=== PATIENT | female | born 1995 | race Caucasian/White ===

== ENCOUNTER → 2019-09-06 | Outpatient (CLI) | payer BC, MEDICAID ==
--- NOTE | 2019-09-06 10:49 | Diagnostic Imaging Report ---
INDICATION: survey. TECHNIQUE: Multiple real-time grayscale images were obtained over the gravid uterus. COMPARISON: None FINDINGS: There is a single live fetus in a breech presentation. heart rate was recorded at 144 bpm. The placenta is anterior. Amniotic fluid volume is normal. kidneys, bladder and stomach are unremarkable. The brain is unremarkable. There is a four-chamber heart. There is a three-vessel cord with normal insertion. spine is unremarkable. Biometrical measurements are as follows: Biparietal 5.2 cm, age 21 weeks 6 days. Head circumference 19.5 cm, age 21 weeks 5 days. Abdominal circumference 16.3 cm, age 21 weeks 3 days. Femur length 3.4 cm, age 20 weeks 6 days. Sonographic estimate age: 21 weeks 4 days. Sonographic estimated date of delivery: 01/13/20. Estimated Weight: 404 gm (+/- 59 gm). LMP percentile: 25%. heart rate: 144 beats per minute. number: 1 of 1. IMPRESSION: Single live IUP 21 weeks 4 days gestational age. Estimated date of confinement sonographically is 01/13/2020. Dictated by: Dictated on workstation # [id number]
== END ==
LOC: RAD 10:02
PROVIDERS: ATTEND Obstetrics & Gynecology
DX: Z36.89 Encounter for other specified antenatal screening (principal); Z3A.21 21 weeks gestation of pregnancy
CPT/HCPCS: 76805

== ENCOUNTER 2019-11-07 16:49 | Outpatient (CLI) | payer BC, MEDICAID ==
[~2019-11-07] VITALS: Ht 162.6 cm; Wt 93.7 kg
--- NOTE | 2019-11-07 16:45 | NUR ---
CHIN MATTSON presented to unit via AMBULATION from ED, accompanied by S/O, with c/o LEAKING FLUID. CHIN MATTSON weighed, gowned, voided, and to bed. EFHM and TOCO applied, VS taken. CHIN MATTSON oriented to bed controls, call light, TV, heat, and A/C controls.
--- NOTE | 2019-11-07 16:50 | NUR ---
PT REPORTS LEAKING FLUID ONCE LAST WEEK AND AGAIN TODAY, DENIES RECENT INTERCOURSE, BLEEDING, CONTRACTIONS OR PAIN. INITIAL ASSESSMENT COMPLETED, VSS, NITAZINE NEG.
--- NOTE | 2019-11-07 17:20 | NUR ---
DR CHIN NOTIFIED.
[2019-11-07 17:24] LABS: CLARITY,URINE CLOUDY; COLOR,URINE YELLOW; GLUCOSE, URINE (UA) TRACE (NEGATIVE); KETONES,URINE NEGATIVE (NEGATIVE); LEUKOCYTE ESTERASE ,URINE TRACE (NEGATIVE); NITRITE,URINE NEGATIVE (NEGATIVE); PROTEIN,URINE 1+ (NEGATIVE)
[2019-11-07 17:27] VITALS: BP 121/78
[2019-11-07 17:33] LABS: BILIRUBIN,URINE 1+ (NEGATIVE); RBC,URINE 0-2 /HPF; WBC,URINE 0-2 /HPF
[2019-11-07 17:34] LABS: BACTERIA,URINE FEW /HPF
--- NOTE | 2019-11-07 18:00 | NUR ---
DR CHIN CALLED UPDATE GIVEN NEW ORDER RECEIVED.
--- NOTE | 2019-11-07 18:10 | NUR ---
DISCHARGE INSTRUCTIONS EXPLAINED TO PT, PT VERBALIZES UNDERSTANDING, SIGNED, NO QUESTIONS NOTED, PT DENIES PAIN OR CONCERNS.
--- NOTE | 2019-11-07 18:14 | NUR ---
PT AMBULATED OFF UNIT TO PRIVATE CAR WITH SO AT SIDE, NO DISTRESS NOTED, PT TO FOLLOW UP WITH DR SCHEDULED IN CLINIC.
--- NOTE | 2019-11-08 08:04 | Physician Query-Final Dx ---
LC MONCADA 11/08/19 0804: Clinic Account Progress/Dx Physician Query: Please give diagnosis Please include # weeks gestation Date of Service Nov 07, 2019 at 16:49 ENRRIQUE CHIN DO 11/08/19 0958: Clinic Account Progress/Dx DIAGNOSIS: Diagnosis 30 week IUP Vaginal discharge LC MONCADA Nov 08, 2019 08:04 POSENRRIQUE CHIN DO Nov 08, 2019 09:58 POS
== END 2019-11-07 18:14 | disposition home or self-care (01) ==
LOC: LDRP 16:49 → WSo 16:49
PROVIDERS: ATTEND Obstetrics & Gynecology
DX: O23.593 Infection of other part of genital tract in pregnancy, third trimester (principal); N89.8 Other specified noninflammatory disorders of vagina; Z3A.30 30 weeks gestation of pregnancy
CPT/HCPCS: 81000; 87088; 99213

== ENCOUNTER 2019-12-02 16:53 | Outpatient (CLI) | payer BC, MEDICAID ==
[~2019-12-02] VITALS: Ht 160 cm; Wt 98.2 kg
--- NOTE | 2019-12-02 16:48 | NUR ---
CHIN MATTSON presented to unit via from ED , with c/o PELVIC PRESSURE. CHIN MATTSON weighed, gowned, voided, and to bed. EFHM and TOCO applied, VS taken. CHIN MATTSON oriented to bed controls, call light, TV, heat, and A/C controls.
[2019-12-02 18:04] VITALS: BP 123/79
--- NOTE | 2019-12-02 18:05 | NUR ---
DR JOYCE CALLED, UPDATE GIVEN, DR NOTIFIED OF DECELERATION NOTED ON FHR TRACING, NEW ORDERS TO CONTINUE TO MONITOR IF REACTIVE FHR TRACING NOTED WITHOUT FURTHER DECELERATIONS THEN D/C HOME FOR FOLLOW UP WITH DR CABRERA ON MONDAY.
[2019-12-02 18:15] VITALS: BP 118/66
[2019-12-02] MEDS ORDERED: TERBUTALINE INJ 1 MG/ML (BRETHINE) AMP SC NR (18:45)
--- NOTE | 2019-12-02 18:45 | NUR ---
DR JOYCE CALLED NEW ORDERS RECEIVED.
--- NOTE | 2019-12-02 19:46 | NUR ---
DR. JOYCE CALLED AND UPDATED ON PT'S STATUS. ORDERS RECEIVED FOR DISCHARGE HOME.
--- NOTE | 2019-12-02 19:54 | NUR ---
DISCHARGE PAPERS PROVIDED AND REVIEWED WITH PT, PT VERBALIZES UNDERSTANDING AND DENIES ANY QUESTIONS AT THIS TIME. PAPER SIGNED.
--- NOTE | 2019-12-02 19:56 | NUR ---
PT DISCHARGED FROM [facility] TO [facility] VIA AMBULATORY IN STABLE CONDITION ACC BY S/O AND FAMILY.
--- NOTE | 2019-12-03 08:21 | Physician Query-Final Dx ---
Clinic Account Progress/Dx Physician Query: Please give diagnosis Please give # weeks gestation Date of Service Dec 02, 2019 at 16:53 LC MONCADA Dec 03, 2019 08:21
== END 2019-12-02 19:56 | disposition home or self-care (01) ==
LOC: WSo 16:53 → LDRP 16:55 → WSo 19:56
PROVIDERS: ATTEND Obstetrics & Gynecology
DX: O26.893 Other specified pregnancy related conditions, third trimester (principal); R10.2 Pelvic and perineal pain; Z3A.34 34 weeks gestation of pregnancy

== ENCOUNTER 2019-12-13 09:05 | Inpatient (IN) | payer BC, MEDICAID ==
[~2019-12-13] VITALS: Ht 160 cm; Wt 99.0 kg
[2019-12-13] VITALS (30 sets, daily range): BP systolic 107–132; BP diastolic 62–91
--- NOTE | 2019-12-13 09:00 | NUR ---
CHIN MATTSON presented to unit via ambulation with c/o back pain since yesterday & contractions. Pt. weighed, gowned, voided, and to bed. EFHM and TOCO applied, VS taken. Pt. oriented to bed controls, call light, TV, heat, and A/C controls.
--- NOTE | 2019-12-13 09:10 | NUR ---
pt reports c/o back pain and contractions since yesterday. rates pain @ 3 on 1-10 scale. denies taking pain medication for relief. describes as "ache & sharp" @ times. hx of PTD @ 36 weeks. denies vaginal bleeding or leaking fluid. +FM.
--- NOTE | 2019-12-13 09:25 | NUR ---
SVE 3cm, thick, anterior, soft. pt reports seeing Dr. Friedman in office on Monday-3cm.
[2019-12-13 09:27] LABS: BILIRUBIN,URINE NEGATIVE (NEGATIVE); CLARITY,URINE CLEAR; COLOR,URINE YELLOW; GLUCOSE, URINE (UA) NEGATIVE (NEGATIVE); KETONES,URINE NEGATIVE (NEGATIVE); LEUKOCYTE ESTERASE ,URINE TRACE (NEGATIVE); NITRITE,URINE NEGATIVE (NEGATIVE); PH,URINE 6.5 (5-9); PROTEIN,URINE NEGATIVE (NEGATIVE)
[2019-12-13 09:42] LABS: BACTERIA,URINE TRACE /HPF
--- NOTE | 2019-12-13 09:54 | NUR ---
was called. message left with office staff.
--- NOTE | 2019-12-13 10:03 | NUR ---
returned phone call. new orders received. pt status updated r/t monitor tracing, SVE and UA.
[2019-12-13] MEDS ORDERED: D5 LR IV SOLUTION 1,000 ML IV ONE (10:05)
--- NOTE | 2019-12-13 10:14 | NUR ---
#20g IV to Rt.hand x1 attempt by this RN. site patent, secured with opsite. D5LR @ 500cc/hr infusing via IV pump.
[2019-12-13] MEDS ORDERED: D5 LR IV SOLUTION 1,000 ML IV SCH ×3 (10:15→20:12)
[2019-12-13] MEDS ORDERED: ACETAMINOPHEN 500 MG TAB (TYLENOL) PO ONE (10:30)
[2019-12-13] MEDS ORDERED: HYDROmorphone 2 MG/ML VIAL (DILAUDID) IV ONE (11:45)
--- NOTE | 2019-12-13 12:19 | NUR ---
was called with SVE update. new orders received for IV antibiotics.
--- NOTE | 2019-12-13 13:17 | NUR ---
was called r/t PCN allergy. will recheck cervix- contact to see if available for care of pt.
[2019-12-13] MEDS: D5 LR IV SOLUTION 1,000 ML IV SCH ×2 (13:18→21:47)
--- NOTE | 2019-12-13 13:32 | NUR ---
was called with SVE update. will recheck in 1 hour-call MD with update.
--- NOTE | 2019-12-13 14:48 | NUR ---
was called with SVE update. new orders received.
--- NOTE | 2019-12-13 17:36 | NUR ---
was called with update on monitor tracing. new orders received.
[2019-12-13] MEDS ORDERED: CLINDAMYCIN 900 MG/50 ML IVPB 50 ML IV ONE (17:44)
[2019-12-13] MEDS: CLINDAMYCIN 900 MG/50 ML IVPB 50 ML IV SCH (17:51)
[2019-12-13 18:40] LABS: BASOPHILS % (AUTO) 0 % (0-10); EOSINOPHILS # (AUTO) 0.7 10^3/uL (0.0-0.3); EOSINOPHILS % (AUTO) 5 % (0-10); HEMATOCRIT 32 % (35-52); HEMOGLOBIN 10.8 G/DL (11.5-16.0); LYMPHOCYTES # (AUTO) 3.1 X 10^3 (1.0-4.0); LYMPHOCYTES % (AUTO) 24 % (12-44); MEAN CORPUSCULAR HEMOGLOBIN 27 PG (25-34); MEAN CORPUSCULAR HGB CONC 34 G/DL (32-36); MEAN CORPUSCULAR VOLUME 78 FL (80-99); MEAN PLATELET VOLUME 9.8 FL (7.4-10.4); MONOCYTES # (AUTO) 0.7 X 10^3 (0.0-1.0); MONOCYTES % (AUTO) 6 % (0-12); NEUTROPHILS # (AUTO) 8.3 X 10^3 (1.8-7.8); NEUTROPHILS % (AUTO) 65 % (42-75); PLATELET COUNT 309 10^3/uL (130-400); RED CELL DISTRIBUTION WIDTH 12.6 % (10.0-14.5); WHITE BLOOD COUNT 12.8 10^3/uL (4.3-11.0)
[2019-12-13] MEDS ORDERED: ACETAMINOPHEN 500 MG TAB (TYLENOL) ONE (19:05)
[2019-12-13] MEDS ORDERED: SUFENTA 0.6MCG/ML BUPIVA 0.125 100 ML ONE (19:09)
[2019-12-13] MEDS ORDERED: LACTATED RINGERS 1,000 ML IV ONE ×2 (19:09→19:22)
[2019-12-13] MEDS ORDERED: ACETAMINOPHEN 500 MG TAB (TYLENOL) PO PRN (19:15)
[2019-12-13] MEDS ORDERED: fentaNYL INJECTION 100 MCG/2 ML AMP ONE (19:16)
[2019-12-13] MEDS ORDERED: NALOXONE 0.4 MG/ML 1 ML (NARCAN) VIAL IV PRN ×2 (19:30)
[2019-12-13] MEDS ORDERED: diphenhydrAMINE 50 MG/ML INJ (BENADRYL) IV PRN (19:30)
[2019-12-13] MEDS ORDERED: ONDANSETRON 4 MG/2 ML (SDV) Z0FRAN IV PRN (19:30)
[2019-12-13] MEDS ORDERED: METOCLOPRAMIDE INJ 10 MG/2 ML (REGLAN) IV PRN (19:30)
[2019-12-13] MEDS ORDERED: EPIDURAL (SUFENTA 0.6MCG/ML BUPIVA 0.125%) 100 ML BAG EPI PRN (19:30)
--- NOTE | 2019-12-13 19:30 | NUR ---
report given to KAE Martinez.
[2019-12-13] MEDS: OXYTOCIN/NORMAL SALINE 500 ML IV SCH (21:44)
[2019-12-13] MEDS ORDERED: CATHETER FLUSH 10 ML SYR IV SCH (22:00)
[2019-12-14] VITALS (76 sets, daily range): BP systolic 84–124; BP diastolic 51–73
[2019-12-14] MEDS: CLINDAMYCIN 900 MG/50 ML IVPB 50 ML IV SCH ×2 (02:28→10:06)
[2019-12-14] MEDS: D5 LR IV SOLUTION 1,000 ML IV SCH ×2 (04:58→09:31)
--- NOTE | 2019-12-14 06:14 | NUR ---
0550: Nurse spoke with Dr. Friedman. informed of latest SVE and FHT's. Informed that pitocin has been left off through the night since pt has been making change on her own and jose.
[2019-12-14] MEDS ORDERED: LIDOCAINE/EPI 2% 1:200,00 (XYLOCAINE) 10 ML VIAL ONE (07:47)
[2019-12-14] MEDS ORDERED: MINERAL OIL CONCENTRATE 99.9% 15 ML UDC ONE (07:47)
--- NOTE | 2019-12-14 08:10 | NUR ---
Dr Friedman called to inquire about pt status. Will do vag exam and text results. 7-8 cms, -2, no pressure on cervix. Pt comfortable. [id number] Dr Friedman text to inquire about status. Informed her some continued variables, 1 late deceleration but with good variability. Contractions 5-6 minutes apart. Will continue to leave pitocin off.
--- NOTE | 2019-12-14 09:42 | NUR ---
[address] Friedman. No cervical change. 0952 Dr Friedman ordered Pitocin to start at 2 mu/min with maximum of 6. [address] Friedman regarding prolonged deceleration 3 contractions that were 1.5-2 minutes apart. Most contractions are 5 minutes apart. Fetus responded without intervention.
[2019-12-14] MEDS: OXYTOCIN/NORMAL SALINE 500 ML IV SCH ×2 (09:56→15:43)
[2019-12-14] MEDS ORDERED: OXYTOCIN/NORMAL SALINE 500 ML IV SCH ×2 (10:00→15:09)
[2019-12-14] MEDS ORDERED: LACTATED RINGERS 0 ML IV ONE (11:10)
--- NOTE | 2019-12-14 11:10 | NUR ---
LR 1000m bolus initiated per orders - to infuse prior to Propranolol.
[2019-12-14] MEDS ORDERED: LACTATED RINGERS 1,000 ML IV SCH (11:15)
[2019-12-14] MEDS ORDERED: PROPRANOLOL 1 MG/ML (INDERAL) INJ IV NR (11:15)
--- NOTE | 2019-12-14 13:34 | NUR ---
Text message to Dr Friedman. 9cm's, -1. Contractions more regular at 3 minute apart. Occasional mild variables. Turned to lt side using peanut ball. Mild pelvic pressure felt by pt. Addendum: 12/14/19 at 1407 by WALKER LYNN RN Correction -turned to rt side after exam. Had been left side lying with peanut ball prior to exam.
--- NOTE | 2019-12-14 14:40 | NUR ---
Dr Friedman presented to L&D. Pt 10cms
--- NOTE | 2019-12-14 15:12 | History & Physical-OB ---
OB - Chief Complaint & HPI Date/Time Date of Admission: Date of Admission: Dec 13, 2019 at 17:42 Chief Complaint/History Hx : 2 Hx Para: 1 Expected Date of Delivery: Jan 12, 2020 Allergies and Home Medications Allergies Coded Allergies: Penicillins (Verified Allergy, Unknown, Rash, 12/02/19) Home Medications No Active Prescriptions or Reported Meds Patient Home Medication List Home Medication List Reviewed: Yes OB - History Hx of Present Care: Yes Obstetrical History Hx : 2 Hx Para: 1 Social History/Family History Recent Infectious Disease Expo: No Alcohol Use: Denies Use Recreational Drug Use: No 2nd Hand Smoke Exposure: No OB - Admission Exam Physical Exam Vitals: Vital Signs 12/13/19 12/14/19 12/14/19 12/14/19 21:55 12:30 13:30 14:00 Temp 36.7 Pulse 81 Resp 16 B/P (MAP) 100/54 (69) Pulse Ox 100 O2 Delivery Room Air Labs Laboratory Tests Test 12/13/19 18:20 Range/Units White Blood Count 12.8 H 4.3-11.0 10^3/uL Red Blood Count 4.06 L 4.35-5.85 10^6/uL Hemoglobin 10.8 L 11.5-16.0 G/DL Hematocrit 32 L 35-52 % Mean Corpuscular Volume 78 L 80-99 FL Mean Corpuscular Hemoglobin 27 25-34 PG Mean Corpuscular Hemoglobin Concent 34 32-36 G/DL Red Cell Distribution Width 12.6 10.0-14.5 % Platelet Count 309 130-400 10^3/uL Mean Platelet Volume 9.8 7.4-10.4 FL Neutrophils (%) (Auto) 65 42-75 % Lymphocytes (%) (Auto) 24 12-44 % Monocytes (%) (Auto) 6 0-12 % Eosinophils (%) (Auto) 5 0-10 % Basophils (%) (Auto) 0 0-10 % Neutrophils # (Auto) 8.3 H 1.8-7.8 X 10^3 Lymphocytes # (Auto) 3.1 1.0-4.0 X 10^3 Monocytes # (Auto) 0.7 0.0-1.0 X 10^3 Eosinophils # (Auto) 0.7 H 0.0-0.3 10^3/uL Basophils # (Auto) 0.0 0.0-0.1 10^3/uL EMMETT CABRERA DO Dec 14, 2019 15:12
--- NOTE | 2019-12-14 15:14 | OB Labor & Delivery Record ---
Vag Delivery Note Vag Delivery Note Date of Delivery: 12/14/19 Preoperative Diagnosis: Yazmin Tejada is a (24 /Para 2 / 1, Gestational Age 35 6/7 weeks, labor, unknown gbs Postoperative Diagnosis: Same Surgeon: EMMETT CABRERA Anesthesia: epidural Delivery Type: vaginal Findings: Viable male , apgars pending, weight pending Lacerations: none Intact placenta with 3 vessel cord. Nuchal cord x 2 with hand in between the loops at the right side of the neck/chin, no body cord or shoulder dystocia Estimated Blood Loss: 150 ml Complications: None Condition: Stable Description of Procedure: The patient is a 24 year old female who presented for labor. She was admitted and informed consent was obtained. Her initial management was by Dr. Collazo. He did not write any notes, so her labor management was garnered by history from the RN and the nurse. Her labor course was remarkable for antibiotics for GBS prophylaxis. He allowed epidural placement and then AROM with reportedly clear fluid. She did have augmentation with oxytocin due to lack of cervical Change. However, she had variable and late decelerations, so the oxytocin was discontinued. She continued to contract very irregularly and was not making progress. However, she was given propranolol for dysfunctional labor and a peanut ball was used. And then the was 9 cm dilated. She was repo sitioned and was able to be put on 2 mu of oxytocin and then she progressed to complete dilatation and began to push. She was then set up for delivery. The 's head was delivered atraumatically in the VICKI position. The shoulders and remainder of the 's body were then delivered without difficulty. There was a double nuchal cord that was delivered through with a right hand between the two loops of the cord. Upon delivery, the head was held below the level of the perineum and the mouth and nares were bulb suctioned. The cord was doubly clamped and cut and the infant was handed off to the pediatric staff. An intact placenta with 3-vessel cord delivered via Jay and there was found to be minimal bleeding.~ Vigorous fundal massage was performed and the fundus was found to be firm. IV oxytocin was given. Examination of the vagina and perineum revealed no laceration repaired in the usual fashion with 3-0 vicryl suture. Following the delivery, sponge, instrument and needle counts were correct. Mom and baby were both in stable condition in the labor suite. Vitals - Labs Vital Signs - I&O Vital Signs Date Time Temp Pulse Resp B/P (MAP) Pulse Ox O2 Delivery O2 Flow Rate FiO2 12/14/19 14:00 81 100/54 (69) Room Air 12/14/19 13:45 82 96/55 (69) Room Air 12/14/19 13:30 36.7 82 104/58 (73) Room Air 12/14/19 13:15 72 120/58 (78) Room Air 12/14/19 13:00 74 108/56 (73) Room Air 12/14/19 12:45 79 111/62 (78) Room Air 12/14/19 12:30 81 16 107/58 (74) Room Air 12/14/19 12:15 78 16 112/62 (79) Room Air 12/14/19 12:00 81 16 109/60 (76) Room Air 12/14/19 11:45 79 113/61 (78) Room Air 12/14/19 11:30 36.9 Room Air 12/14/19 11:15 75 109/63 (78) Room Air 12/14/19 11:00 80 102/59 (73) Room Air 12/14/19 10:45 80 102/59 (73) Room Air 12/14/19 10:30 76 98/57 (71) Room Air 12/14/19 10:15 80 16 99/62 (74) Room Air 12/14/19 10:00 36.8 80 16 99/62 (74) Room Air 12/14/19 09:45 85 16 99/64 (76) Room Air 12/14/19 09:30 75 16 97/61 (73) Room Air 12/14/19 09:15 85 16 94/61 (72) Room Air 12/14/19 09:00 77 16 104/61 (75) Room Air 12/14/19 08:45 77 16 104/61 (75) Room Air 12/14/19 08:30 73 16 111/64 (80) Room Air 12/14/19 08:15 78 16 106/61 (76) Room Air 12/14/19 08:00 74 16 109/67 (81) Room Air 12/14/19 07:45 74 16 106/71 (83) Room Air 12/14/19 07:30 80 16 105/70 (82) Room Air 12/14/19 07:15 36.6 79 16 105/65 (78) Room Air 12/14/19 06:38 36.3 82 16 115/65 (82) Room Air 12/14/19 06:24 90 16 113/66 (82) Room Air 12/14/19 06:10 84 16 115/66 (82) Room Air 12/14/19 05:55 92 16 117/69 (85) Room Air 12/14/19 05:40 93 16 115/62 (79) Room Air 12/14/19 05:30 81 16 107/64 (78) Room Air 12/14/19 05:25 96 16 110/63 (79) Room Air 12/14/19 05:17 36.7 89 16 110/66 (81) Room Air 12/14/19 05:10 98 16 86/51 (63) Room Air 12/14/19 04:56 86 16 93/57 (69) Room Air 12/14/19 04:55 89 16 84/53 (63) Room Air 12/14/19 04:40 88 16 92/51 (65) Room Air 12/14/19 04:25 84 16 89/55 (66) Room Air 12/14/19 04:10 88 16 95/53 (67) Room Air 12/14/19 03:55 93 16 91/51 (64) Room Air 12/14/19 03:40 86 16 103/59 (74) Room Air 12/14/19 03:25 96 16 91/51 (64) Room Air 12/14/19 03:10 82 16 104/59 (74) Room Air 12/14/19 02:55 82 16 113/67 (82) Room Air 12/14/19 02:40 90 16 107/62 (77) Room Air 12/14/19 02:25 82 16 109/59 (76) Room Air 12/14/19 02:10 89 16 113/58 (76) Room Air 12/14/19 01:55 36.9 92 16 111/68 (82) Room Air 12/14/19 01:40 83 16 112/68 (83) Room Air 12/14/19 01:28 84 16 108/64 (79) Room Air 12/14/19 01:25 82 16 86/52 (63) Room Air 12/14/19 01:10 84 16 94/51 (65) Room Air 12/14/19 00:55 90 16 95/51 (66) Room Air 12/14/19 00:40 84 16 95/53 (67) Room Air 12/14/19 00:25 76 16 103/58 (73) Room Air 12/14/19 00:10 83 16 104/62 (76) Room Air 12/13/19 23:55 88 16 118/71 (87) Room Air 12/13/19 23:40 73 16 116/69 (85) Room Air 12/13/19 23:25 84 16 116/66 (83) Room Air 12/13/19 23:10 80 16 124/77 (93) Room Air 12/13/19 22:55 36.7 87 16 125/77 (93) Room Air 12/13/19 22:40 96 16 125/75 (92) Room Air 12/13/19 22:25 87 16 115/69 (84) Room Air 12/13/19 22:05 86 18 125/80 (95) Room Air 12/13/19 21:55 86 18 120/75 (90) 100 Room Air 12/13/19 21:40 80 18 126/78 (94) 100 Room Air 12/13/19 21:25 78 18 129/80 (96) 99 Room Air 12/13/19 21:10 82 18 132/72 (92) 99 Room Air 12/13/19 20:53 84 18 120/75 (90) 100 Room Air 12/13/19 20:38 83 18 115/74 (88) 99 Room Air 12/13/19 20:33 95 18 127/77 (94) 100 Room Air 12/13/19 20:28 85 18 126/72 (90) 99 Room Air 12/13/19 20:22 89 18 123/78 (93) 98 Room Air 12/13/19 20:18 95 18 123/76 (92) 99 Room Air 12/13/19 20:12 95 18 127/81 (96) 100 Room Air 12/13/19 19:53 100 18 130/78 (95) 100 Room Air 12/13/19 19:48 94 18 123/76 (92) 100 Room Air 12/13/19 19:42 95 18 125/78 (94) 100 Room Air 12/13/19 19:40 97 18 130/81 (97) 100 Room Air 12/13/19 19:38 95 18 130/82 (98) 99 Room Air 12/13/19 19:34 96 18 124/81 (95) 100 Room Air 12/13/19 19:30 91 18 128/91 (103) 100 Room Air 12/13/19 17:30 36.8 91 18 110/64 (79) 97 Room Air I & O 12/14/19 07:00 Intake Total 3050 ml Balance 3050 ml Labs Laboratory Tests 12/13/19 18:20: White Blood Count 12.8H, Red Blood Count 4.06L, Hemoglobin 10.8L, Hematocrit 32L , Mean Corpuscular Volume 78L, Mean Corpuscular Hemoglobin 27, Mean Corpuscular Hemoglobin Concent 34, Red Cell Distribution Width 12.6, Platelet Count 309, Mean Platelet Volume 9.8, Neutrophils (%) (Auto) 65, Lymphocytes (%) (Auto) 24, Monocytes (%) (Auto) 6, Eosinophils (%) (Auto) 5, Basophils (%) (Auto) 0, Neutrophils # (Auto) 8.3H, Lymphocytes # (Auto) 3.1, Monocytes # (Auto) 0.7, Eosinophils # (Auto) 0.7H, Basophils # (Auto) 0.0 Microbiology 12/13/19 Urine Culture - Final, Complete 3 or more isolates EMMETT CABRERA DO Dec 14, 2019 15:14
[2019-12-14] MEDS ORDERED: WITCH HAZEL(TUCKS) 40 EA JAR TOP PRN (15:15)
[2019-12-14] MEDS ORDERED: BENZOCAINE/MENTHOL (DERMOPLAST) 60 ML CAN TP PRN (15:15)
[2019-12-14] MEDS ORDERED: TETANUS,DIPTH,PERTUSS P/F (BOOSTRIX) 0.5 ML VIAL IM ONE (15:15)
[2019-12-14] MEDS ORDERED: MEASLES,MUMPS,RUBELLA 1 EA INJ SQ ONE (15:15)
[2019-12-14] MEDS: IBUPROFEN 600 MG (MOTRIN) TAB PO SCH ×2 (16:01→21:59)
--- NOTE | 2019-12-14 16:41 | NUR ---
Pt had urge to void - lt leg can not support pt yet. Voided large amount of bedpan.
[2019-12-14] MEDS ORDERED: ACETAMINOPHEN 500 MG TAB (TYLENOL) ONE (18:53)
--- NOTE | 2019-12-14 19:12 | NUR ---
packet discussed. Pt verbalizes knowledge of amy bottle, Tucks, and pads. Plans to pump breasts and give expressed breast milk per bottle. Pumped almost 30 mls. Mild discomfort in lower back from epidural. Rates pain 0.
--- NOTE | 2019-12-14 19:50 | NUR ---
IV TO SALINE LOCK.
--- NOTE | 2019-12-14 20:05 | NUR ---
SALINE LOCK COVERED AND PT UP TO SHOWER. THIS NURSE AND REMAIN IN ROOM.
[2019-12-14] MEDS: DOCUSATE SODIUM 100 MG (COLACE) CAP PO SCH (21:59)
[2019-12-14] MEDS ORDERED: CATHETER FLUSH 10 ML SYR IV SCH (22:00)
[2019-12-15 00:20] VITALS: BP 119/84
[2019-12-15] MEDS ORDERED: CALCIUM CARBONATE 500 MG (TUMS) TAB.CHEW ONE (02:11)
[2019-12-15] MEDS ORDERED: CALCIUM CARBONATE 500 MG (TUMS) TAB.CHEW PO ONE (02:15)
--- NOTE | 2019-12-15 02:20 | NUR ---
TYLENOL ADMINISTERED AT THIS TIME.
[2019-12-15] MEDS: ACETAMINOPHEN 500 MG TAB (TYLENOL) PO SCH ×2 (02:21→09:19)
--- NOTE | 2019-12-15 06:05 | NUR ---
LAB HERE FOR AM LAB DRAW.
[2019-12-15 06:22] LABS: BASOPHILS % (AUTO) 0 % (0-10); EOSINOPHILS # (AUTO) 0.7 10^3/uL (0.0-0.3); EOSINOPHILS % (AUTO) 5 % (0-10); HEMATOCRIT 32 % (35-52); HEMOGLOBIN 10.9 G/DL (11.5-16.0); LYMPHOCYTES # (AUTO) 3.2 X 10^3 (1.0-4.0); LYMPHOCYTES % (AUTO) 25 % (12-44); MEAN CORPUSCULAR HEMOGLOBIN 27 PG (25-34); MEAN CORPUSCULAR HGB CONC 34 G/DL (32-36); MEAN CORPUSCULAR VOLUME 79 FL (80-99); MEAN PLATELET VOLUME 10.1 FL (7.4-10.4); MONOCYTES # (AUTO) 0.7 X 10^3 (0.0-1.0); MONOCYTES % (AUTO) 6 % (0-12); NEUTROPHILS % (AUTO) 63 % (42-75); PLATELET COUNT 269 10^3/uL (130-400); RED CELL DISTRIBUTION WIDTH 12.9 % (10.0-14.5); WHITE BLOOD COUNT 12.6 10^3/uL (4.3-11.0)
[2019-12-15] MEDS: IBUPROFEN 600 MG (MOTRIN) TAB PO SCH ×2 (06:59→12:17)
[2019-12-15] MEDS ORDERED: FERROUS SULF 325 MG (IRON) TAB PO SCH (07:00)
[2019-12-15] MEDS ORDERED: PRENATAL VITAMIN 1 EA TAB PO SCH (07:00)
--- NOTE | 2019-12-15 07:00 | NUR ---
MOTRIN ADMINISTERED. PT DENIES ANY NEEDS.
[2019-12-15 08:37] VITALS: BP 125/76
--- NOTE | 2019-12-15 08:58 | History & Physical-OB ---
OB - Chief Complaint & HPI Date/Time Date of Admission: Date of Admission: Dec 13, 2019 at 17:42 Date seen by a Provider: Dec 14, 2019 Time Seen by a Provider: 14:40 Chief Complaint/History OB-Reason for Admission/Chief: Labor Hx : 2 Hx Para: 1 Expected Date of Delivery: Jan 12, 2020 Gestational Age in Weeks: 35 Gestational Age in Days: 6 Admission Nurse Assessment Rev: Yes Other Patient has a history of labor with tocolysis and then delivery at 36 weeks. She has been on IM [place]. She was admitted to the hospital by Dr. Prescott and early labor was managed by him. Once I was aware of her admission she was already admitted and had AROM and started on antibiotics. He did not do an H&P nor write a progress note, so H&P is done at delivery. she is GBS unknown. This was done in the office on Monday. She has PCN allergy so sensitivities were requested if GBS +. is otherwise uncomplicated HBsAg - HIV - Hep C - GBS unk Rub NI VDRL NR. Allergies and Home Medications Allergies Coded Allergies: Penicillins (Verified Allergy, Unknown, Rash, 12/02/19) Home Medications No Active Prescriptions or Reported Meds Patient Home Medication List Home Medication List Reviewed: Yes OB - History Hx of Present Care: Yes Ultrasounds: Normal mid trimester US Obstetrical Complications: None, Other ( contractions. She has been having contractions but has not had cervical change. ) Medical Complications: None Information Pre-Hospital Medication Admins: IM [place] Induced Hypertension: No Maternal Gestational Diabetes: No Hemorrhage: No Obstetrical History Hx : 2 Hx Para: 1 Hx Termination: No Hx Multiple Gestation: No Hx Ectopic : No Hx Stillbirth: No Hx Complication: Yes ( delivery) Hx Induced Hypertens: No Hx Maternal Gestational Diabet: No Hx Hemorrhage: No Delivery History Hx Dystocia: No Hx Forceps Assisted Delivery: No Hx Vacuum Extraction Assisted: No Hx Placenta Abnormality: No Hx Distress: No Hx Large For Gestational Age I: No Hx Small for Gestational Age I: No Hx Section: No Hx Vaginal Delivery Post C-Sec: No Hx Blood Disorders: No Adverse Rxn to Tranfusion: No Patient Past Medical History She was told she has hypertension and started on lisinopril prior to finding out she was . No hypertesion during this . Social History/Family History HIV/AIDS: No Recent Infectious Disease Expo: No Sexually Transmitted Disease: No Alcohol Use: Denies Use Recreational Drug Use: No Smoking Cessation: Never smoker 2nd Hand Smoke Exposure: No Immunizations Hepatitis A: No Hepatitis B: No Tetanus Booster (TDap): Less than 5yrs Rubella: not immune RPR/VDRL: Negative GBS Status: Unknown HBsAG: Negative OB - Admission Exam Physical Exam Vitals: Vital Signs 12/15/19 08:37 Temp 37.3 Pulse 89 Resp 16 B/P (MAP) 125/76 (92) Pulse Ox 97 O2 Delivery Room Air Heart: Rhythm Normal Lungs: Clear, Equal Abdomen: Gravid Extremities: Normal Reflexes: Normal Labs Laboratory Tests Test 12/15/19 06:10 Range/Units White Blood Count 12.6 H 4.3-11.0 10^3/uL Red Blood Count 4.09 L 4.35-5.85 10^6/uL Hemoglobin 10.9 L 11.5-16.0 G/DL Hematocrit 32 L 35-52 % Mean Corpuscular Volume 79 L 80-99 FL Mean Corpuscular Hemoglobin 27 25-34 PG Mean Corpuscular Hemoglobin Concent 34 32-36 G/DL Red Cell Distribution Width 12.9 10.0-14.5 % Platelet Count 269 130-400 10^3/uL Mean Platelet Volume 10.1 7.4-10.4 FL Neutrophils (%) (Auto) 63 42-75 % Lymphocytes (%) (Auto) 25 12-44 % Monocytes (%) (Auto) 6 0-12 % Eosinophils (%) (Auto) 5 0-10 % Basophils (%) (Auto) 0 0-10 % Neutrophils # (Auto) 8.0 H 1.8-7.8 X 10^3 Lymphocytes # (Auto) 3.2 1.0-4.0 X 10^3 Monocytes # (Auto) 0.7 0.0-1.0 X 10^3 Eosinophils # (Auto) 0.7 H 0.0-0.3 10^3/uL Basophils # (Auto) 0.0 0.0-0.1 10^3/uL OB - Assessment/Plan/Diagnosis Assessment Assessment: active labor, IUP - , labor, other (GBS unknown) Admission Dx 1. labor 35 5/7 weeks 2. GBS unknown I did not admit the patient but assumed care from Dr. Prescott after membranes were ruptured and epidural had already been placed. I will assume care and anticipate > However, she is . Peds button sewer is Dr. Stovall GBS is unknown and she has PCN allergy so antibiotics had already been started by Dr. prescott (clindamycin). GBS status was checked when she was admitted and had not been resulted, but after delivery, results were available and GBS is negative. Admission Status: Inpatient Order (span 2 midnights) ( labor) Reason for Inpatient Admission: labor Plan Plan: Other EMMETT CABRERA DO Dec 15, 2019 08:58
[2019-12-15] MEDS: DOCUSATE SODIUM 100 MG (COLACE) CAP PO SCH (09:19)
--- NOTE | 2019-12-15 11:21 | NUR ---
Dr Friedman to see patient and review plan of care.
[2019-12-15] MEDS ORDERED: IBUP-844 PO (11:25)
[2019-12-15] MEDS ORDERED: ACET-93 PO (11:25)
--- NOTE | 2019-12-15 11:26 | Discharge Inst-Women's Service ---
Discharge Inst-Women's Serv Depart Medication/Instructions New, Converted or Re-Newed RX: RX on Chart Final Diagnosis labor, delivered Consults/Follow Up Additional Follow Up: Yes (6 weeks) Activity Activity: Activity as Tolerated Driving Instructions: You May Drive NO SMOKING: NO SMOKING Nothing Inside Vagina: No Douching, No Ceiba, No Tampons Diet Discharge Diet: No Restrictions Symptoms to Report to : Bleeding Excessive, Pain Increased, Fever Over 101 Degrees F, Vaginal Bleeding Increase, Cramps in Feet or Legs, Vaginal Discharge Foul For Any Problems or Questions: Contact Your Physician EMMETT CABRERA DO Dec 15, 2019 11:26
[2019-12-15 12:18] VITALS: BP 121/76
--- NOTE | 2019-12-15 12:30 | NUR ---
Prescriptions given to patient and discussed. pt verbalized understanding.
--- NOTE | 2019-12-15 13:50 | NUR ---
Discharge instructions explained, signed and copy to patient. pt verbalized understanding of instructions and denied questions.
--- NOTE | 2019-12-15 13:55 | NUR ---
boarder parent info sheet given and explained, to pt. pt discharged to [facility] at this time.
--- NOTE | 2019-12-15 14:54 | Anesthesia-Regional Post-Op ---
Regional Patient Condition Mental Status: Alert, Oriented x3 Circulation: Same as Pre-Op Headache: Absent Sensation: Full Recovery Motor Block: Absent Post Op Complications Complications None Follow Up Care/Instructions Patient Instructions None needed. Anesthesia/Patient Condition Patient was discharged today with no complaints related to anesthesia. AB KHAN CRNA Dec 15, 2019 14:54
== END 2019-12-15 13:50 | disposition home or self-care (01) | DRG 807 ==
LOC: WSo 09:05 → LDRP 09:06 → WSo 17:42 → LDRP 12-14 18:00
PROVIDERS: ADMIT Obstetrics & Gynecology; ATTEND Obstetrics & Gynecology
PROC: 10E0XZZ Delivery of Products of Conception, External Approach (ICD-10-PCS; principal; 2019-12-14)
DX: O60.14X0 Preterm labor third trimester with preterm delivery third trimester, not applicable or unspecified (principal); O69.81X0 Labor and delivery complicated by cord around neck, without compression, not applicable or unspecified; Z37.0 Single live birth; Z3A.35 35 weeks gestation of pregnancy; Z23 Encounter for immunization
CPT/HCPCS: 36415; 81000; 85025; 86780; 86850; 86900; 86901; 87088; 90707; 99212

== ENCOUNTER 2020-04-03 13:45 | Outpatient (RCR) | payer MEDICAID ==
[~2020-04-03] VITALS: Ht 160 cm; Wt 97.5 kg
[~2020-04-03 13:45] MED LIST: ACET-93 PO; IBUP-844 PO
[2020-04-03 14:41] VITALS: BP 138/89
[2020-04-03] MEDS ORDERED: DULO30CA3 PO (14:44)
[2020-04-03 14:45] LABS: BILIRUBIN,URINE NEGATIVE (NEGATIVE); CLARITY,URINE CLEAR; COLOR,URINE YELLOW; GLUCOSE, URINE (UA) NEGATIVE (NEGATIVE); KETONES,URINE NEGATIVE (NEGATIVE); LEUKOCYTE ESTERASE ,URINE TRACE (NEGATIVE); NITRITE,URINE NEGATIVE (NEGATIVE); PH,URINE 5.5 (5-9); PROTEIN,URINE NEGATIVE (NEGATIVE)
[2020-04-03 14:48] LABS: BASOPHILS % (AUTO) 0 % (0-10); EOSINOPHILS # (AUTO) 0.8 10^3/uL (0.0-0.3); EOSINOPHILS % (AUTO) 6 % (0-10); HEMATOCRIT 40 % (35-52); HEMOGLOBIN 13.7 G/DL (11.5-16.0); LYMPHOCYTES # (AUTO) 4.3 X 10^3 (1.0-4.0); LYMPHOCYTES % (AUTO) 35 % (12-44); MEAN CORPUSCULAR HEMOGLOBIN 26 PG (25-34); MEAN CORPUSCULAR HGB CONC 34 G/DL (32-36); MEAN CORPUSCULAR VOLUME 76 FL (80-99); MEAN PLATELET VOLUME 9.3 FL (7.4-10.4); MONOCYTES # (AUTO) 0.6 X 10^3 (0.0-1.0); MONOCYTES % (AUTO) 5 % (0-12); NEUTROPHILS # (AUTO) 6.4 X 10^3 (1.8-7.8); NEUTROPHILS % (AUTO) 53 % (42-75); PLATELET COUNT 448 10^3/uL (130-400); RED CELL DISTRIBUTION WIDTH 16.2 % (10.0-14.5); WHITE BLOOD COUNT 12.1 10^3/uL (4.3-11.0)
[2020-04-03 15:01] LABS: BACTERIA,URINE FEW /HPF
== END 2020-04-03 14:47 | disposition home or self-care (01) ==
LOC: PREOP 13:45
PROVIDERS: ATTEND Obstetrics & Gynecology
DX: Z01.818 Encounter for other preprocedural examination (principal); Z01.812 Encounter for preprocedural laboratory examination; Z11.2 Encounter for screening for other bacterial diseases; Z11.59 Encounter for screening for other viral diseases; N87.9 Dysplasia of cervix uteri, unspecified; N81.9 Female genital prolapse, unspecified; R82.998 Other abnormal findings in urine
CPT/HCPCS: 36415; 81000; 85025; 86850; 86900; 86901; 87081; 87088; 87635